=== PATIENT | male | born 1975 | race African-American/Black ===

== ENCOUNTER 2019-01-06 00:47 | Emergency (ER) | payer SELFPAY ==
[~2019-01-06] VITALS: Ht 190.5 cm; Wt 109.0 kg
[2019-01-06] MEDS ORDERED: AZITHROMYCIN 250 MG TABLET PO ONE (05:00)
[2019-01-06] MEDS ORDERED: CEFTRIAXONE SODIUM 250 MG/VIAL IM ONE (05:00)
[2019-01-06] MEDS ORDERED: LIDOCAINE HCL 1% 20ML VIAL (Pyxis) INJ INFIL ONE (05:00)
[2019-01-06 05:53] LABS: CLARITY URINE CLEAR (CLEAR); COLOR URINE YELLOW (YELLOW); KETONES URINE TRACE (NEGATIVE); LEUKOCYTE ESTERASE URINE NEGATIVE (NEGATIVE); NITRITE URINE NEGATIVE (NEGATIVE); OCCULT BLOOD URINE NEGATIVE (NEGATIVE); PROTEIN URINE NEGATIVE (NEGATIVE)
[2019-01-06 06:01] VITALS: BP 148/99
== END 2019-01-06 06:36 | disposition home or self-care (01) ==
LOC: ER 01:19
DX: Z20.2 Contact with and (suspected) exposure to infections with a predominantly sexual mode of transmission (principal); I10 Essential (primary) hypertension; Z98.890 Other specified postprocedural states
CPT/HCPCS: 81003; 96372; 99283; J0696; J3490; Z7610

== ENCOUNTER 2020-04-08 23:08 | Emergency (ER) | payer MEDICAID ==
[~2020-04-08] VITALS: Ht 182.9 cm; Wt 112.0 kg
[2020-04-09] MEDS ORDERED: ASPIRIN 81MG TABLET PO ONE (00:30)
[2020-04-09 00:56] LABS: BASOPHILS % 0.2 % (0.0-2.0); EOSINOPHILS % 0.4 % (0.0-5.0); HEMATOCRIT. 42.1 % (42.0-52.0); HEMOGLOBIN. 14.8 g/dL (14.0-18.0); LYMPHOCYTES % 16.3 % (20.0-50.0); MEAN CORPUSCULAR HEMOGLOBIN 31.4 pg (28.0-32.0); MEAN CORPUSCULAR VOLUME 89.2 fL (80.0-94.0); MEAN PLATELET VOLUME 7.1 fl (7.4-10.4); MONOCYTES % 7.9 % (2.0-8.0); NEUTROPHILS % 75.2 % (40.0-76.0); PLATELET 184 x1000/uL (130-400); RED BLOOD CELL COUNT 4.72 mill/uL (4.7-6.1)
[2020-04-09] MEDS ORDERED: HYDROCODONE/ACETAMINOPHEN 5/325MG TABLET PO PRN (01:00)
[2020-04-09] MEDS ORDERED: KETOROLAC 30MG/ML VIAL IV ONE (01:00)
[2020-04-09 01:01] LABS: CHLORIDE 102 mEq/L (98-107)
[2020-04-09 04:00] VITALS: BP 146/85
== END 2020-04-09 04:00 | disposition home or self-care (01) ==
LOC: ER 23:40
DX: R07.89 Other chest pain (principal); J45.909 Unspecified asthma, uncomplicated; I10 Essential (primary) hypertension; Z98.890 Other specified postprocedural states
CPT/HCPCS: 36415; 71045; 80053; 83880; 84484; 85025; 93005; 96374; 99285; J1885; Z7610

== ENCOUNTER 2024-07-08 23:59 | Emergency (ER) | payer MEDICAID, OTHER ==
[~2024-07-08] VITALS: Ht 190.5 cm; Wt 125.2 kg
[2024-07-09 00:01] VITALS: O2SAT 98
[2024-07-09] MEDS ORDERED: IBUP-2030 MT (02:35)
[2024-07-09] MEDS ORDERED: AMOX1TAB16 MT (02:35)
[2024-07-09] MEDS: KETOROLAC 30MG/ML VIAL IM STA (02:50)
[2024-07-09] MEDS: HYDROCODONE/ACETAMINOPHEN 5/325MG TABLET PO STA (02:51)
[2024-07-09 03:04] VITALS: BP 161/90; PULSE 62; RESP 20; TEMP 36.66960; O2SAT 98
[2024-07-09] MEDS ORDERED: TRAM50TA3 MT (23:57)
== END 2024-07-09 03:09 | disposition home or self-care (01) ==
LOC: ER 23:59
DX: K04.7 Periapical abscess without sinus (principal); K02.9 Dental caries, unspecified; J45.909 Unspecified asthma, uncomplicated; I10 Essential (primary) hypertension
CPT/HCPCS: 99283; 96372; J1885

== ENCOUNTER 2024-07-09 22:25 | Emergency (ER) | payer MEDICAID, OTHER ==
[~2024-07-09] VITALS: Ht 190.5 cm; Wt 122.0 kg
[~2024-07-09 22:25] MED LIST: AMOX1TAB16 MT; IBUP-2030 MT
[2024-07-09 22:27] VITALS: TEMP 98.8; O2SAT 98
[2024-07-09 23:30] VITALS: BP 185/106; PULSE 85; RESP 18
[2024-07-09] MEDS: KETOROLAC 30MG/ML VIAL IM ONE (23:30)
[2024-07-09] MEDS: HYDROCODONE/ACETAMINOPHEN 5/325MG TABLET PO ONE (23:30)
[2024-07-09 23:42] LABS: BASOPHILS % 0.3 % (0.0-2.0); EOSINOPHILS % 2.3 % (0.0-5.0); HEMATOCRIT. 40.5 % (42.0-52.0); HEMOGLOBIN. 13.8 g/dL (14.0-18.0); LYMPHOCYTES % 27.6 % (20.0-50.0); MEAN CORPUSCULAR HGB CONC 34.1 g/dL (31.0-37.0); MEAN CORPUSCULAR VOLUME 91.1 fL (80.0-94.0); MEAN PLATELET VOLUME 6.6 fl (7.4-10.4); MONOCYTES % 10.7 % (2.0-8.0); NEUTROPHILS % 59.1 % (40.0-76.0); PLATELET 177 x1000/uL (130-400); RED BLOOD CELL COUNT 4.44 mill/uL (4.7-6.1); RED CELL DISTRIBUTION WIDTH 14.3 % (11.6-14.6); WHITE BLOOD COUNT 5.5 x1000/uL (4.5-11.0)
[2024-07-09 23:47] LABS: CHLORIDE 105 mEq/L (98-107); POTASSIUM 3.9 mEq/L (3.5-5.1); SODIUM 138 mEq/L (136-145)
[2024-07-09 23:48] LABS: CALCIUM 9.6 mg/dL (8.7-10.4); CARBON DIOXIDE 27 mEq/L (21-32)
[2024-07-09 23:53] LABS: CREATININE 1.3 mg/dL (0.6-1.3); GLUCOSE 110 mg/dL (70-105); UREA NITROGEN BLOOD 11 mg/dL (9-23)
[2024-07-09] MEDS ORDERED: TRAM50TA3 MT (23:57)
== END 2024-07-10 00:28 | disposition home or self-care (01) ==
LOC: ER 22:25
DX: K04.7 Periapical abscess without sinus (principal); I10 Essential (primary) hypertension; J45.909 Unspecified asthma, uncomplicated
CPT/HCPCS: 99283; 80048; 85025; 36415; 96372; J1885; 99284

== ENCOUNTER 2024-11-11 08:32 | Emergency (ER) | payer OTHER ==
[~2024-11-11] VITALS: Ht 182.9 cm; Wt 127.0 kg
[~2024-11-11 08:32] MED LIST changes: +TRAM50TA3 MT
[2024-11-11 08:46] VITALS: O2SAT 97
[2024-11-11] MEDS ORDERED: AMOX1TAB16 MT (09:33)
[2024-11-11] MEDS ORDERED: BENZ100C86 MT (09:34)
[2024-11-11 09:59] VITALS: BP 154/94; PULSE 87; RESP 16; TEMP 37.78080; O2SAT 98
== END 2024-11-11 10:04 | disposition home or self-care (01) ==
LOC: ER 08:32
DX: J01.90 Acute sinusitis, unspecified (principal); J45.909 Unspecified asthma, uncomplicated; I10 Essential (primary) hypertension
CPT/HCPCS: 71045; 99283; Z7610

== ENCOUNTER 2024-11-14 07:39 | Emergency (ER) | payer OTHER ==
[~2024-11-14] VITALS: Ht 185.4 cm; Wt 125.0 kg
[~2024-11-14 07:39] MED LIST changes: +BENZ100C86 MT
[2024-11-14 07:42] VITALS: O2SAT 99
[2024-11-14 07:50] VITALS: BP 143/91; PULSE 67; RESP 18; TEMP 98.1; O2SAT 99
[2024-11-14] MEDS ORDERED: P50 MT (08:04)
== END 2024-11-14 08:09 | disposition home or self-care (01) ==
LOC: ER 07:49
DX: J45.909 Unspecified asthma, uncomplicated (principal); I10 Essential (primary) hypertension; Z79.899 Other long term (current) drug therapy
CPT/HCPCS: 99283